=== PATIENT | female | born 1940 | race Hispanic/Latino ===

== ENCOUNTER 2017-09-29 12:53 | Emergency (ER) | payer MEDICARE ==
[2017-09-29 15:13] LABS: BUN/Creatinine Ratio 31; Blood Urea Nitrogen 25 mg/dL (7-17); Calcium 8.6 mg/dL (8.4-10.2); Hemolysis Index 11
[2017-09-29 15:18] LABS: Hematocrit 37.7 % (30.3-42.9); Hemoglobin 12.1 gm/dl (10.1-14.3); Mean Corpuscular HGB Conc 32 % (30-34); Mean Corpuscular Hemoglobin 30 pg (28-32); Mean Corpuscular Volume 94 fl (79-97); Platelet Count 167 K/mm3 (140-440); Red Blood Count 4.02 M/mm3 (3.65-5.03); Red Cell Distribution Width 14.7 % (13.2-15.2)
[2017-09-29] MEDS ORDERED: DUONEB *Not for PRN Use IH ONE (16:43)
[2017-09-29] MEDS ORDERED: SUBLIMAZE IV ONE (21:52)
[2017-09-29] MEDS ORDERED: APRESOLINE IV ONE (21:52)
--- NOTE | 2017-09-29 21:55 | Emergency Department Report ---
ED General Adult HPI - General Chief complaint: Back Pain/Injury Stated complaint: LOWER BACK PAIN Time Seen by Provider: 09/29/17 21:41 Source: patient, family, EMS (ems notes not available at time of chart dictation), RN notes reviewed Mode of arrival: Wheelchair Limitations: Other (patient is a poor historian) - History of Present Illness Initial comments: This is a 77-year-old female who is previously known to this provider, her primary care doctor is Dr. Sean Nevarez Family reports past medical history of asthma, congestive heart failure, hypertension, lupus, DJD, CK D, myasthenia gravis Surgical history includes appendectomy and hernia. H and presents to the ER with family for a complaint of back pain. To me, patient indicates no back pain. Her complaint is of abdominal pain. The abdominal pain is the right lower quadrant. She reports is from present for months. It does not radiate anywhere. It has no exacerbating or relieving factors. Family reports that patient is a poor historian, in that she's had 5 hospital visits within the past month for back pain. They report that the patient was centrally diagnosed with a radiculopathy or pinched nerve, and that they're coming for a second opinion. They indicate the patient typically walks with a walker at baseline. Family also indicates no fecal or urinary incontinence. -: Gradual Location: back Radiation: non-radiation Severity scale (0 -10): 0 Quality: aching Consistency: intermittent Improves with: rest Worsens with: movement Associated Symptoms: confusion (patient has dementia, as per family, chronic confusion). denies: chest pain, cough, diaphoresis, fever/chills, headaches, loss of appetite, malaise, nausea/vomiting, rash, seizure, shortness of breath, syncope, weakness - Related Data Allergies Allergy/AdvReac Type Severity Reaction Status Date / Time No Known Allergies Allergy Unverified 09/29/17 13:08 ED Review of Systems ROS: Stated complaint: LOWER BACK PAIN Other details as noted in HPI Constitutional: malaise. denies: fever Eyes: denies: vision change Respiratory: denies: shortness of breath Cardiovascular: denies: chest pain Gastrointestinal: abdominal pain Genitourinary: denies: dysuria Musculoskeletal: back pain Skin: as per HPI Neurological: weakness, confusion Psychiatric: as per HPI ED Past Medical Hx - Past Medical History Hx Hypertension: Yes Hx Congestive Heart Failure: Yes Hx Asthma: Yes Additional medical history: lupus,CKD,DJD,myasthsena gravitius - Social History Smoking Status: Never Smoker Substance Use Type: None ED Physical Exam - General Limitations: Other (patient demented, patient's orders) General appearance: alert, in no apparent distress, other (patient is alert to name.) - Head Head exam: Present: atraumatic, normocephalic - Eye Eye exam: Present: normal appearance, EOMI. Absent: nystagmus - ENT ENT exam: Present: normal exam, normal orophraynx, mucous membranes moist, normal external ear exam - Neck Neck exam: Present: normal inspection, full ROM - Respiratory Respiratory exam: Present: normal lung sounds bilaterally. Absent: respiratory distress, chest wall tenderness - Cardiovascular Cardiovascular Exam: Present: regular rate, normal rhythm, normal heart sounds. Absent: systolic murmur, diastolic murmur, rubs, gallop - GI/Abdominal GI/Abdominal exam: Present: soft, normal bowel sounds. Absent: distended, tenderness, guarding, rebound, rigid, pulsatile mass - Extremities Exam Extremities exam: Present: normal inspection, pedal edema. Absent: calf tenderness - Back Exam Back exam: Present: normal inspection, paraspinal tenderness. Absent: tenderness, CVA tenderness (R) - Neurological Exam Neurological exam: Present: alert, CN II-XII intact, other (Extraocular movements intact. Tongue midline. No facial droop. Facial sensation intact to light touch in the V1, V2, V3 distribution bilaterally. 5 and 5 strength in 4 extremities.. Sensation is intact to light touch in 4 extremities.). Absent : motor sensory deficit - Psychiatric Psychiatric exam: Present: normal affect, normal mood - Skin Skin exam: Present: warm, dry, intact, normal color. Absent: rash ED Course Vital Signs 09/29/17 09/29/17 09/29/17 13:03 19:21 21:30 Temperature 97.9 F 98.6 F Pulse Rate 71 72 70 Respiratory 18 16 16 Rate Blood Pressure 176/78 187/80 180/69 Blood Pressure [Right] O2 Sat by Pulse 100 92 87 Oximetry 09/29/17 09/29/17 09/29/17 21:35 22:15 22:18 Temperature 97.7 F Pulse Rate 69 70 70 Respiratory 17 13 Rate Blood Pressure 189/74 180/69 Blood Pressure 193/79 [Right] O2 Sat by Pulse 94 Oximetry 09/29/17 09/29/17 09/29/17 22:30 22:55 23:00 Temperature Pulse Rate 70 70 70 Respiratory 15 10 L 11 L Rate Blood Pressure 179/68 179/68 180/67 Blood Pressure [Right] O2 Sat by Pulse 91 94 96 Oximetry 09/30/17 09/30/17 09/30/17 00:00 01:00 02:00 Temperature Pulse Rate 70 70 70 Respiratory 11 L 13 12 Rate Blood Pressure 165/64 180/67 165/68 Blood Pressure [Right] O2 Sat by Pulse Oximetry 09/30/17 03:00 Temperature Pulse Rate 70 Respiratory 14 Rate Blood Pressure 169/68 Blood Pressure [Right] O2 Sat by Pulse Oximetry - Reevaluation(s) Reevaluation #1: 09/29/17 22:25 Differential diagnosis, including but not limited to: Constipation, bowel obstruction, urinary tract infection, DJD, AAA Assessment and plan: 77-year-old female with reproducible lower back pain, does not have physical exam findings to suggest epidural compression syndrome, also reports a history of AAA, lives at home with her 86-year-old sister, and relates with a walker, and appears to be somewhat demented. Patient as per family has had multiple evaluations for back pain. Laboratory studies are reviewed and are unremarkable, urinalysis is pending, noncontrast CT scan of the abdomen and pelvis is pending. Patient is ordered for physical therapy consult, this can be performed at her house. Patient was given pain medication, and hydralazine for her elevated blood pressure. Reassess after CT scan and urinalysis have resulted. Reevaluation #2: 09/29/17 23:20 The urinalysis is not corroborate urinary tract infection. CT scan demonstrates an IVC filter, with one of the legs of the IVC filter projecting through the IVC, and projecting into the medial aspect of the lower third of the right kidney. An additional leg of the inferior vena cava filter is projecting into the L3 vertebral body inferiorly. No aneurysm is noted. Status post cholecystectomy. Moderate lumbar scoliosis. 2 pages have been placed out to vascular surgery to discuss. 09/29/17 23:23 Reevaluation #3: 09/29/17 23:[address] scan, physical exam findings presented to the vascular surgeon on- call, Dr. Markos Foss. He recommends transfer to another facility, such as [facility], or [place], as he recommends that these CT scan findings would require an open IVC surgical intervention, which this hospital does not perform. Reevaluation #4: 09/30/17 00:46 Case is presented to vascular surgeon on-call for [facility], Dr. Rossana Huggins; he agrees to see the patient in consultation request medical admission given numerous medical comorbidities. He does agree to see the patient emergently this evening upon arrival to the hospital. Case is then presented to Hospital physician, Dr. Lee, who accepts the patient as a transfer. ED Medical Decision Making - Lab Data Result diagrams: 09/29/17 14:43 09/29/17 14:43 Vital Signs 09/29/17 09/29/17 09/29/17 13:03 19:21 21:35 Temperature 97.9 F 98.6 F 97.7 F Pulse Rate 71 72 69 Respiratory 18 16 17 Rate Blood Pressure 176/78 187/80 Blood Pressure 193/79 [Right] O2 Sat by Pulse 100 92 94 Oximetry Lab Results 09/29/17 09/29/17 Range/Units 14:43 14:43 WBC 6.8 (4.5-11.0) K/mm3 RBC 4.02 (3.65-5.03) M/mm3 Hgb 12.1 (10.1-14.3) gm/dl Hct 37.7 (30.3-42.9) % MCV 94 (79-97) fl MCH 30 (28-32) pg MCHC 32 (30-34) % RDW 14.7 (13.2-15.2) % Plt Count 167 (140-440) K/mm3 Sodium 140 (137-145) mmol/L Potassium 4.3 (3.6-5.0) mmol/L Chloride 100.2 (98-107) mmol/L Carbon Dioxide 27 (22-30) mmol/L Anion Gap 17 mmol/L BUN 25 H (7-17) mg/dL Creatinine 0.8 (0.7-1.2) mg/dL Estimated GFR > 60 ml/min BUN/Creatinine Ratio 31 % Glucose 108 H (65-100) mg/dL Calcium 8.6 (8.4-10.2) mg/dL Critical care attestation.: If time is entered above; I have spent that time in minutes in the direct care of this critically ill patient, excluding procedure time. ED Disposition Clinical Impression: Presence of IVC filter, Back pain Disposition: DC/ [facility] IP Is pt being admited?: No Does the pt Need Aspirin: No Condition: Stable Referrals: SEAN NEVAREZ MD [Primary Care Provider] - 3-5 Days
--- NOTE | 2017-09-29 22:51 | Cat Scan Report ---
FINAL REPORT PROCEDURE: CT ABDOMEN PELVIS WO CON TECHNIQUE: Computerized axial tomography of the abdomen and pelvis was performed without intravenous contrast. This study is performed without intravascular contrast material and its sensitivity for abdominal and pelvic pathology, including neoplasms, inflammation, abscess, free fluid, thrombosis, arterial dissection and infarction, is reduced compared with a contrast enhanced study. HISTORY: back pain abd pain COMPARISON: No prior studies are available for comparison. FINDINGS: Lower Lung choi: Cardiac leads are partially visualized in the right side of the heart. Lung bases are clear. The heart appears to be enlarged. Upper Abdomen: The gallbladder is surgically absent. There is mild prominence of the intrahepatic ducts which can be seen after cholecystectomy. Recommend correlation with serum bilirubin levels to ensure there is no evidence for biliary obstruction. The unenhanced images of the liver otherwise are unremarkable. The adrenal glands are unremarkable. The pancreas showed no focal abnormalities. The spleen does not appear to be enlarged. Kidneys, Ureters and Urinary bladder: There is an inferior vena cava filter present. One of the legs of the inferior vena cava filter project through the inferior vena cava and appear to be projecting into the medial aspect of the lower 3rd of the right kidney. An additional leg of the inferior vena cava filter projects through the inferior vena cava is projecting into the anterior aspect of the L3 vertebral body inferiorly. These findings are best visualized on coronal image 60 series 200 and axial image 65 series 3. The kidneys, the ureters and urinary bladder otherwise are unremarkable. Retroperitoneum: Atherosclerotic changes are seen in the abdominal aorta. No aneurysm is visualized. Nonspecific subcentimeter lymph nodes are seen in the retroperitoneum. No pathologically enlarged lymph nodes are identified. Bowel: There is extensive diverticulosis in the left side of the colon without evidence of diverticulitis. This extends into the splenic flexure as well. There is moderate diverticulosis in the proximal transverse colon and hepatic flexure. The appendix is not clearly visualized. There is no inflammatory change in the right lower quadrant. Reproductive organs: Uterus is surgically absent. No abnormal adnexal masses are identified. Other: There is grade 1 spondylolisthesis L4 in relation L5 which appears to be degenerative. I do not see evidence of spondylolysis. There is moderate thoracolumbar scoliosis convex to the right apex at the L2-3 level. IMPRESSION: Prior cholecystectomy. Intrahepatic ducts are prominent. This can be seen after cholecystectomy. Recommend correlation with serum bilirubin levels to ensure there is no evidence for biliary obstruction. Inferior vena cava filter in place. Please see above comments regarding positioning of the inferior vena cava legs. The location of penetrating legs is a finding of uncertain significance. There is moderate lumbar scoliosis. There is diffuse degenerative disc disease visualized throughout the lumbar spine. There is degenerative grade 1 spondylolisthesis L4 in relation L5. No acute bony abnormalities are identified. Cardiomegaly. Cardiac leads visualize right side of the heart. Extensive colonic diverticulosis without evidence of diverticulitis. Prior hysterectomy.
[2017-09-29 23:18] LABS: Bilirubin,Urine NEG (Negative); Blood,Urine NEG (Negative); Color,Urine Yellow (Yellow); Mucus,Urine FEW /HPF; Nitrite,Urine NEG (Negative)
[2017-09-30 03:22] VITALS: BP 169/68
== END 2017-09-30 05:00 | disposition short-term general hospital (02) ==
LOC: ED 12:53
DX: M54.5 Low back pain (principal); J45.909 Unspecified asthma, uncomplicated; I12.0 Hypertensive chronic kidney disease with stage 5 chronic kidney disease or end stage renal disease; N18.9 Chronic kidney disease, unspecified
CPT/HCPCS: 36415; 74176; 80048; 81001; 85027; 96374; 96375; 99285; J0360; J3010